=== PATIENT | male | born 1950 | race Caucasian/White ===

== ENCOUNTER 2023-12-14 13:20 | Outpatient (CLI) | payer OTHER, SELFPAY ==
--- NOTE | 2023-12-18 14:38 | WPDHOLTEREM ---
Holter/Event Monitor Holter/Event Monitor Date of procedure: 12/14/23 Holter/Event Procedure: 48 Hr Holter Monitor Indications: Palpitations Conclusion: 1. 48 hour holter monitor on 12/14/23. 2. Underlying rhythm is sinus rhythm. HR range 51-101 bpm; average HR 65 bpm. 3. There are 23 premature supraventricular complexes and 2 supraventricular couplets. No supraventricular tachycardia. 4. No premature ventricular complexes. No ventricular tachycardia. 5. No sinoatrial or atrioventricular blocks. No significant pauses greater than 2 seconds. 6. No symptoms available for correlation.
== END 2023-12-14 13:21 | disposition home or self-care (01) ==
PROVIDERS: PCP Family Medicine; Visit Provider Family Medicine
DX: R00.2 Palpitations (principal)
CPT/HCPCS: 93225; 93226